=== PATIENT | male | born 1975 | race Caucasian/White ===

== ENCOUNTER 2019-08-12 11:16 | Emergency (ER) | payer SELFPAY ==
--- NOTE | 2019-08-12 11:48 | RAD ---
LEFT HAND RADIOGRAPHS 3 VIEWS: DATE: 08/12/2019. PROVIDED CLINICAL HISTORY: Pain status post injury. FINDINGS: Nondisplaced transversely oriented fractures involving the 4th and 5th metacarpal bases are demonstra mars. Intraarticular extension is not apparent. No additional fracture is evident. Alignment appear s anatomic. Joint spaces appear preserved. IMPRESSION: Nondisplaced extraarticular 4th and 5th metacarpal base fractures. POS: SAMUEL
== END 2019-08-12 12:30 | disposition home or self-care (01) ==
LOC: ERS 11:16
DX: S62.345A Nondisplaced fracture of base of fourth metacarpal bone, left hand, initial encounter for closed fracture (principal); S62.347A Nondisplaced fracture of base of fifth metacarpal bone, left hand, initial encounter for closed fracture; F31.9 Bipolar disorder, unspecified; Z79.899 Other long term (current) drug therapy; W23.0XXA Caught, crushed, jammed, or pinched between moving objects, initial encounter; Y92.009 Unspecified place in unspecified non-institutional (private) residence as the place of occurrence of the external cause
CPT/HCPCS: 29125

== ENCOUNTER 2020-03-19 11:02 | Outpatient (CLI) | payer OTHER ==
--- NOTE | 2020-03-19 11:53 | RAD ---
Exam:Left foot 3 views HISTORY: Disability evaluation. COMPARISON: None FINDINGS: Lisfranc alignment is maintained. Preserved joint spaces. No fracture, cortical irregularit y or periosteal reaction. IMPRESSION: No radiographic abnormality in the left foot.
== END 2020-03-19 11:03 | disposition home or self-care (01) ==
LOC: BICRAD 11:02
PROVIDERS: ATTEND Internal Medicine
DX: Z02.71 Encounter for disability determination (principal)

== ENCOUNTER 2022-03-02 06:12 | Emergency (ER) | payer SELFPAY ==
[2022-03-02] MEDS ORDERED: Ondansetron PF 4 MG/2 ML Vial ONE (07:43)
[2022-03-02] MEDS ORDERED: Ketorolac Tromethamine 30 MG/ML VIAL ONE (07:44)
[2022-03-02 07:59] LABS: #Basophils 0.1 thou/uL (0.0-0.2); #Eosinphils 0.3 thou/uL (0.0-0.7); #Lymphocytes 1.6 thou/uL (1.20-3.40); #Monocytes 0.9 thou/uL (0.11-0.59); #Neutrophils 12.4 thou/uL (1.40-6.50); %Basophils 0.3 % (0.0-1.0); %Eosinophils 1.8 % (0.0-10.0); %Lymphocytes 10.5 % (21.0-51.0); %Monocytes 5.9 % (0.0-10.0); %Neutrophils 81.5 % (42.0-75.0); Hemoglobin 15.3 g/dL (14.0-18.0); Mean Corpuscular HGB CONC 33.3 g/dL (32.0-36.0); Mean Corpuscular Hemoglobin 33.9 pg (27.0-31.0); Mean Platelet Volume 10.1 fL (7.4-10.4); Platelet Count 139 thou/uL (130-400); RBC Distribution Width 12.8 % (11.5-14.5); Red Blood Cell (RBC) Count 4.51 mill/uL (4.70-6.10); White Blood Cell (WBC) Count 15.2 thou/uL (4.8-10.8)
[2022-03-02 08:11] LABS: ALT (SGPT) 18 U/L (8-55); AST (SGOT) 18 U/L (5-34); Albumin 4.5 g/dL (3.5-5.0); Alkaline Phosphatase 71 U/L (40-110); Anion Gap 15 mmol/L (10-20); BUN (Urea Nitrogen) 18 mg/dL (8.9-20.6); Bilirubin, Total 0.5 mg/dL (0.2-1.2); Calc. Creatinine Clearance 0 mL/min (70-130); Calcium 9.5 mg/dL (7.8-10.44); Carbon Dioxide 21 mmol/L (22-29); Chloride 105 mmol/L (98-107); Estimated GFR 79; Globulin 3.3 g/dL (2.4-3.5); Glucose 97 mg/dL (70-105); Lipase 9 U/L (8-78); Potassium 4.1 mmol/L (3.5-5.1); Protein, Total 7.8 g/dL (6.0-8.3); Sodium 137 mmol/L (136-145)
[2022-03-02] MEDS ORDERED: Morphine 4 MG/ML VIAL ONE (08:21)
[2022-03-02 08:40] LABS: Bacteria/HPF None Seen HPF (None Seen); Bilirubin Negative (Negative); Blood, Urine 1+ (Negative); Clarity Clear (Clear); Glucose, Urine (Dipstick) Normal (Negative); Ketone, Urine 100 mg/dL (Negative); Leukocyte Negative Leu/uL (Negative); Nitrite Negative (Negative); Protein, Urine (Dipstick) 70 mg/dL (Neg-Trace); RBC/HPF 21-50 HPF (0-3); Specific Gravity, Urine 1.049 (1.002-1.036); Squamous Epithelial 0-3 HPF (0-3); Urobilinogen 3 mg/dL (Less than 2); WBC/HPF 0-3 HPF (0-3)
[2022-03-02] MEDS ORDERED: Dicyclomine 20 MG/2 ML VIAL ONE (09:40)
[2022-03-02] MEDS ORDERED: Iopamidol-370 76% 500 ML 1 ML ONE (12:03)
== END 2022-03-02 09:45 | disposition home or self-care (01) ==
LOC: ERS 06:12
DX: R10.12 Left upper quadrant pain (principal); R91.1 Solitary pulmonary nodule
CPT/HCPCS: 74177; 80053; 81003; 81015; 83690; 85025; 96372; 96374; 96375; J1885; J2270; J2405; Q9967

== ENCOUNTER 2023-07-29 07:32 | Emergency (ER) | payer SELFPAY ==
[2023-07-29] MEDS ORDERED: Ketorolac Tromethamine 30 MG (1 mL) VIAL ONE (08:39)
[2023-07-29 09:28] LABS: #Basophils 0.1 thou/uL (0.0-0.2); #Eosinphils 0.4 thou/uL (0.0-0.7); #Monocytes 0.8 thou/uL (0.11-0.59); #Neutrophils 7.1 thou/uL (1.40-6.50); %Basophils 0.6 % (0.0-1.0); %Eosinophils 3.9 % (0.0-10.0); %Lymphocytes 19.2 % (21.0-51.0); %Monocytes 7.8 % (0.0-10.0); %Neutrophils 67.8 % (42.0-75.0); Hematocrit 43.3 % (42.0-52.0); Hemoglobin 14.5 g/dL (14.0-18.0); Mean Corpuscular HGB CONC 33.5 g/dL (32.0-36.0); Mean Corpuscular Hemoglobin 33.5 pg (27.0-31.0); Mean Platelet Volume 12.2 fL (7.4-10.4); Platelet Count 171 10x3/uL (130-400); Red Blood Cell (RBC) Count 4.33 mill/uL (4.70-6.10); White Blood Cell (WBC) Count 10.4 10x3/uL (4.8-10.8)
[2023-07-29 09:50] LABS: ALT (SGPT) 18 U/L (8-55); AST (SGOT) 16 U/L (5-34); Albumin 4.3 g/dL (3.5-5.0); Alkaline Phosphatase 76 U/L (40-110); Anion Gap 13 mmol/L (10-20); BUN (Urea Nitrogen) 21 mg/dL (8.9-20.6); Bilirubin, Total 0.3 mg/dL (0.2-1.2); Calc. Creatinine Clearance 0 mL/min (70-130); Calcium 9.8 mg/dL (7.8-10.44); Carbon Dioxide 25 mmol/L (22-29); Chloride 104 mmol/L (98-107); Estimated GFR 80; Globulin 3.3 g/dL (2.4-3.5); Glucose 99 mg/dL (70-105); Potassium 4.6 mmol/L (3.5-5.1); Protein, Total 7.6 g/dL (6.0-8.3); Sodium 137 mmol/L (136-145)
[2023-07-29 09:53] LABS: Troponin I Less than 0.010 ng/mL (< 0.028)
[2023-07-29] MEDS ORDERED: Acetaminophen 500 MG TAB ONE (09:54)
== END 2023-07-29 10:30 | disposition home or self-care (01) ==
LOC: ERS 07:32
DX: H61.22 Impacted cerumen, left ear (principal); M54.2 Cervicalgia; R42 Dizziness and giddiness; F17.210 Nicotine dependence, cigarettes, uncomplicated
CPT/HCPCS: 36415; 69210; 70450; 80053; 84484; 85025; 93005; 96374; J1885